=== PATIENT | male | born 1955 | race Caucasian/White ===

== ENCOUNTER 2016-06-25 16:06 | Emergency (ER) | payer MEDICARE, BC ==
--- NOTE | 2016-07-01 13:32 | ER ---
ADMIT: 06/25/2016 RM/LOC: ER [facility] MR#: [id number] [address] [facility] [address] [place], [place] [id number] SHYLA KILGORE [address] [place] [id number] Emergency Room Report SEX: M AGE: 60 : 1955 DATE: 06/25/2016 HISTORY OF PRESENT ILLNESS: The patient presents to the emergency room. He is 60-year-old, presents to the emergency room with a bloody nose. He said it started at 9:30 this morning. He went to [facility] Emergency Room, where they cauterized and packed his nose, but then later on he said he was dripping blood through the packing, so he removed it himself, and so now he is in the ER. He is on Plavix. He takes metformin. He also takes something for blood pressure, but he is not very sure what he takes and do not have that information on hand. ALLERGIES: HE IS ALLERGIC TO ZOLOFT. PAST MEDICAL HISTORY: Includes CVA, which he is taking Plavix for. He had staph infection, hypertension, left knee surgery, and he has diabetes. He uses a cane for ambulation. PHYSICAL EXAMINATION: VITAL SIGNS: His blood pressure is 167/77 with a pulse of 64, respirations 18, temp is 96.2, O2 sats 100%. HEENT: He does have fresh clots in the left naris. Bleeding site identified as the anterior aspect of his nose at the Kiesselbach plexus. He does have some blood in the posterior pharynx as well. Denies any pain. RESPIRATIONS: No distress. CVS: Regular in rate and rhythm. ABDOMEN: Nontender. SKIN: Good color and turgor. PROCEDURE: Patient cleared his nasal passages with blowing. Drops were instilled in the form of Afrin to the left naris, 2 of them. No external pressure was used at this point, but with the otoscope, we were able to visualize the bleeding site, which was not cauterized at this time because it ADMIT: 06/25/2016 RM/LOC: ER [facility] MR#: [id number] [address] [id number] SHYLA KILGORE [address] [place] [address] Emergency Room Report SEX: M AGE: 60 : 1955 was done early this morning in [place], but Dr. Fritz inserted a nasal rocket in the left naris. I am unable to estimate the blood loss from the morning as that is not possible. CLINICAL IMPRESSION: Epistaxis, acute, left anterior naris, on anticoagulated and therapeutically coagulated patient. He is discharged with instructions. Advised to follow up with his doctor at [place]. I contacted [facility] to let them know that the patient was coming in on Tuesday a.m. to have the Rhino Rocket removed. Advised to hold his baby aspirin, but continue the Plavix until he gets that Rhino Rocket removed on Tuesday. Follow up with his primary provider. The patient verbalized understanding, advised to keep hydrated. KAYLEEN Ibrahim / Juan Fritz MD / teo JOB #: [id number] CC: Juan Fritz MD, Attending Physician Saúl Cowan MD, Family Physician
== END 2016-06-25 18:10 | disposition home or self-care (01) ==
LOC: ER 16:06
PROC: 0W3Q3ZZ Control Bleeding in Respiratory Tract, Percutaneous Approach (ICD-10-PCS; principal; 2016-06-25)
DX: R04.0 Epistaxis (principal); I10 Essential (primary) hypertension; E11.9 Type 2 diabetes mellitus without complications; Z79.84 Long term (current) use of oral hypoglycemic drugs; Z86.73 Personal history of transient ischemic attack (TIA), and cerebral infarction without residual deficits